=== PATIENT | male | born 1935 | race Caucasian/White ===

== ENCOUNTER 2017-12-12 07:32 | Emergency (ER) | payer OTHER ==
[~2017-12-12] VITALS: Ht 182.9 cm; Wt 97.5 kg
[2017-12-12 07:36] VITALS: BP_SYST 147
[2017-12-12 08:33] LABS: BASOPHILS % (AUTO) 0.4 % (0.0-2.0); EOSINOPHILS # (AUTO) 0.2 K/uL (0.0-0.4); EOSINOPHILS % (AUTO) 2.5 % (0.0-4.0); HEMATOCRIT 38.9 % (36-54); HEMOGLOBIN 12.6 g/dL (14.0-18.0); LYMPHOCYTES # (AUTO) 1.6 K/uL (1.0-5.5); LYMPHOCYTES % (AUTO) 25.7 % (20.5-51.5); MEAN CORPUSCULAR HEMOGLOBIN 31 pg (27-31); MEAN CORPUSCULAR HGB CONC 32 % (32-36); MEAN CORPUSCULAR VOLUME 96 fL (79.0-98.0); MONOCYTES # (AUTO) 0.6 K/uL (0.0-1.0); MONOCYTES % (AUTO) 10.5 % (1.7-9.3); NEUTROPHILS # (AUTO) 3.8 K/uL (1.8-7.7); NEUTROPHILS % (AUTO) 60.9 % (40.0-70.0); PLATELET COUNT (AUTO) 217 K/uL (130-430); RED BLOOD CELL COUNT(AUTO) 4.04 MIL/uL (4.2-6.2); RED CELL DISTRIBUTION WIDTH 13.2 % (9.0-15.0); WHITE BLOOD COUNT (AUTO) 6.2 K/uL (4.8-10.8)
[2017-12-12 08:39] LABS: ANION GAP 6 (5-15); CALCIUM 9.7 mg/dL (8.4-11.0); CHLORIDE 101 mmol/L (98-107); CREATININE 1.78 mg/dL (0.55-1.30); GLUCOSE 101 mg/dL (70-99); POTASSIUM 4.4 mmol/L (3.5-5.1); SODIUM SERUM 135 mmol/L (136-145); UREA NITROGEN, BLOOD 29 mg/dL (8-21)
[2017-12-12 08:40] LABS: BILIRUBIN,URINE NEGATIVE (NEGATIVE); BLOOD, URINE NEGATIVE (NEGATIVE); CLARITY/URINE CLEAR (CLEAR); COLOR,URINE YELLOW (YELLOW); GLUCOSE,URINE NEGATIVE (NEGATIVE); KETONES,URINE NEGATIVE (NEGATIVE); LEUKOCYTE ESTERASE ,URINE NEGATIVE (NEGATIVE); NITRITE, URINE NEGATIVE (NEGATIVE); PH,URINE 5.5 (5.0-8.0); PROTEIN URINE NEGATIVE (NEGATIVE)
[2017-12-12 08:45] LABS: PROTHROMBIN TIME 9.9 SECS (9.5-12.5)
[2017-12-12 08:52] LABS: BARBITURATE, URINE NEGATIVE (NEG <=200); BENZODIAZEPINE, URINE NEGATIVE (NEG <=150); CANNABINOID, URINE NEGATIVE (NEG <=50); COCAINE, URINE NEGATIVE (NEG <=150); METHAMPHETAMINES SCREEN,URINE NEGATIVE (NEG <=500); OPIATE, URINE NEGATIVE (NEG <=100); PHENCYCLIDINE SCREEN,URINE NEGATIVE (NEG <=25); UR TRICYCLIC ANTIDEPRESSANTS NEGATIVE (NEG <=300); URINE AMPHETAMINE NEGATIVE (NEG <=500); URINE METHADONE NEGATIVE (NEG <=200); URINE OXYCODONE SCREEN NEGATIVE (NEG <=100); URINE PROPOXYPHENE SCREEN NEGATIVE (NEG <=300)
[2017-12-12 08:59] LABS: ALANINE AMINOTRANSFERASE 16 U/L (12-78); ALBUMIN 3.7 g/dL (3.4-4.8); ASPARTATE AMINOTRANSFERASE 18 U/L (10-37); TOTAL BILIRUBIN 0.7 mg/dL (0.0-1.0)
[2017-12-12 09:05] LABS: FREE T4 (FREE THYROXINE) 0.8 ng/dL (0.6-1.6)
[2017-12-12 10:34] VITALS: BP_SYST 149
[2017-12-12] MEDS ORDERED: MECL12.584 PO (10:51)
[2017-12-12] MEDS ORDERED: LOPE2CAP PO (10:51)
[2017-12-12] MEDS ORDERED: ALLO300T2 PO (10:51)
[2017-12-12] MEDS ORDERED: GLIP-172 PO (10:51)
[2017-12-12] MEDS ORDERED: TUM500 PO (10:51)
[2017-12-12] MEDS ORDERED: DOCU-144 PO (10:51)
[2017-12-12] MEDS ORDERED: METO-290 PO (10:51)
[2017-12-12] MEDS ORDERED: SITA100T7 PO (10:51)
[2017-12-12] MEDS ORDERED: GUAI100S14 PO (10:51)
[2017-12-12] MEDS ORDERED: FAMO40TA7 PO (10:51)
[2017-12-12] MEDS ORDERED: VITD2000 PO (10:51)
[2017-12-12] MEDS ORDERED: ARTT OP (10:51)
[2017-12-12] MEDS ORDERED: CARB-61 PO (10:51)
[2017-12-12] MEDS ORDERED: ACET-1010 PO (10:51)
[2017-12-12] MEDS ORDERED: LIP40 PO (10:51)
[2017-12-12] MEDS ORDERED: ROPI0.252 PO (10:51)
[2017-12-12] MEDS ORDERED: MEMA1CAP3 PO (10:51)
== END 2017-12-12 10:34 | disposition home or self-care (01) ==
LOC: SED 07:32
DX: R53.1 Weakness (principal); R51 Headache
CPT/HCPCS: 36415; 70450; 71045; 74018; 80053; 80307; 81003; 83605; 83880; 84439; 84484; 85025; 85610; 87040; 93005; 99285; G0482

== ENCOUNTER 2020-01-05 16:56 | Inpatient (IN) | payer OTHER ==
[~2020-01-05] VITALS: Ht 182.9 cm; Wt 79.4 kg
[~2020-01-05 16:56] MED LIST: ACET-2634 PO; ALLO300T2 PO; ARTT OP; CARB-61 PO; DOCU-144 PO; FAMO40TA7 PO; GLIP10TA21 PO; GUAI100S14 PO; LIP40 PO; LOPE2CAP PO; MECL12.584 PO; MEMA1CAP3 PO; METO-290 PO; ROPI0.252 PO; SITA100T11 PO; TUM500 PO; VITD2000 PO
[2020-01-05] MEDS ORDERED: CHOL100034 PO (17:29)
[2020-01-05] MEDS ORDERED: MEMA10TA21 PO (17:29)
[2020-01-05] MEDS ORDERED: TOLT4CAP14 PO (17:29)
[2020-01-05] MEDS ORDERED: DONE10TA4 PO (17:29)
[2020-01-05] MEDS ORDERED: CAL-GEST PO (17:30)
[2020-01-05] MEDS ORDERED: LOPE2CAP PO (17:30)
[2020-01-05] MEDS ORDERED: MENT3.5O TP (17:30)
[2020-01-05] MEDS ORDERED: LACT10SO7 PO (17:30)
[2020-01-05 17:35] VITALS: BP_SYST 132
[2020-01-05] MEDS ORDERED: KETOROLAC TROMETHAMINE 30 MG VIAL IVP ONE (17:45)
[2020-01-05 18:51] LABS: BASOPHILS % (AUTO) 0.5 % (0.0-2.0); EOSINOPHILS # (AUTO) 0.1 K/uL (0.0-0.4); EOSINOPHILS % (AUTO) 1.6 % (0.0-4.0); HEMATOCRIT 40.8 % (36-54); HEMOGLOBIN 13.3 g/dL (14.0-18.0); LYMPHOCYTES # (AUTO) 1.5 K/uL (1.0-5.5); LYMPHOCYTES % (AUTO) 19.2 % (20.5-51.5); MEAN CORPUSCULAR HEMOGLOBIN 33 pg (27-31); MEAN CORPUSCULAR HGB CONC 33 % (32-36); MEAN CORPUSCULAR VOLUME 102 fL (79.0-98.0); MONOCYTES # (AUTO) 0.9 K/uL (0.0-1.0); MONOCYTES % (AUTO) 11.3 % (1.7-9.3); NEUTROPHILS # (AUTO) 5.4 K/uL (1.8-7.7); NEUTROPHILS % (AUTO) 67.4 % (40.0-70.0); PLATELET COUNT (AUTO) 192 K/uL (130-430); RED CELL DISTRIBUTION WIDTH 15.4 % (9.0-15.0); WHITE BLOOD COUNT (AUTO) 8.1 K/uL (4.8-10.8)
[2020-01-05 19:08] LABS: ANION GAP 9 (5-15); CALCIUM 9.2 mg/dL (8.4-11.0); CHLORIDE 102 mmol/L (98-107); CREATININE 1.39 mg/dL (0.55-1.30); GLUCOSE 125 mg/dL (70-99); POTASSIUM 4.8 mmol/L (3.5-5.1); SODIUM SERUM 138 mmol/L (136-145); UREA NITROGEN, BLOOD 24 mg/dL (8-21)
[2020-01-05 19:09] LABS: PROTHROMBIN TIME 10.2 SECS (9.5-12.5)
[2020-01-05 19:13] LABS: ALANINE AMINOTRANSFERASE 18 U/L (12-78); ALBUMIN 3.7 g/dL (3.4-4.8); ASPARTATE AMINOTRANSFERASE 27 U/L (10-37); TOTAL BILIRUBIN 0.5 mg/dL (0.0-1.0)
[2020-01-05] MEDS ORDERED: roPINIRole HCL 0.25 MG ( REQUIP )TABLET PO ONE (21:00)
[2020-01-05] MEDS ORDERED: CARBIDOPA/LEVODOPA CR 50/200 MG TAB PO ONE (21:00)
[2020-01-05] MEDS ORDERED: roPINIRole HCL 0.25 MG ( REQUIP )TABLET ONE (21:57)
[2020-01-05] MEDS ORDERED: CARBIDOPA/LEVODOPA CR 50/200 MG TAB ONE (21:57)
[2020-01-05 22:16] LABS: BILIRUBIN,URINE NEGATIVE (NEGATIVE); BLOOD, URINE NEGATIVE (NEGATIVE); CLARITY/URINE CLEAR (CLEAR); COLOR,URINE YELLOW (YELLOW); GLUCOSE,URINE NEGATIVE (NEGATIVE); KETONES,URINE NEGATIVE (NEGATIVE); LEUKOCYTE ESTERASE ,URINE NEGATIVE (NEGATIVE); NITRITE, URINE NEGATIVE (NEGATIVE); PH,URINE 5.5 (5.0-8.0); PROTEIN URINE NEGATIVE (NEGATIVE)
[2020-01-05] MEDS ORDERED: cefTRIAXone 1 GM IVPB PREMIX 50 ML IV ONE ×2 (22:45→22:59)
[2020-01-05] MEDS ORDERED: NS 1000 ML IV.SOLN IV ONE (22:45)
[2020-01-06] MEDS: NACL 0.9% 1,000 ML IV SCH ×3 (03:42→16:40)
[2020-01-06] MEDS ORDERED: POTASSIUM CHLORIDE 20 MEQ TAB.PRT.SR PO PRN (06:45)
[2020-01-06] MEDS ORDERED: MUPIROCIN 2% TOPICAL OINTMENT 22 GM NS PRN (06:45)
[2020-01-06] MEDS ORDERED: DOCUSATE SODIUM 100 MG CAPSULE PO PRN (06:45)
[2020-01-06] MEDS ORDERED: ONDANSETRON HCL 4 MG/2 ML VIAL IVP PRN (06:45)
[2020-01-06] MEDS ORDERED: LORazepam 2 MG/ML VIAL IVP PRN (06:45)
[2020-01-06] MEDS ORDERED: ZOLPIDEM TARTRATE 5 MG TABLET PO PRN (06:45)
[2020-01-06] MEDS ORDERED: ACETAMINOPHEN 325 MG TABLET PO PRN (06:45)
[2020-01-06] MEDS ORDERED: MORPHINE SULFATE 10 MG/ML VIAL IVP PRN ×2 (06:45)
[2020-01-06] MEDS ORDERED: MAGNESIUM SULFATE 50 ML IV PRN (06:45)
[2020-01-06 08:30] VITALS: BP_SYST 145
[2020-01-06] MEDS: ALLOPURINOL 300 MG TABLET (ZYLOPRIM) PO SCH (08:51)
[2020-01-06] MEDS: MEMANTINE HCL 5 MG TABLET PO SCH ×2 (08:51→21:23)
[2020-01-06] MEDS: DONEPEZIL HCL 5 MG TABLET (ARICEPT) PO SCH (08:52)
[2020-01-06] MEDS: ATORVASTATIN 20 MG TABLET PO SCH (08:52)
[2020-01-06] MEDS: HEPARIN SODIUM,PORCINE 5000 UNITS/ML VIAL SUBCUT SCH ×2 (08:54→21:22)
[2020-01-06] MEDS: TOLTERODINE TARTRATE 4 MG PO SCH (08:58)
[2020-01-06] MEDS ORDERED: CARBIDOPA/LEVODOPA 25/100 MG TABLET PO SCH (09:00)
[2020-01-06] MEDS: METOPROLOL TARTRATE 25 MG TABLET PO SCH (10:16)
[2020-01-06 12:38] VITALS: BP_SYST 119
[2020-01-06 16:25] VITALS: BP_SYST 159
[2020-01-06] MEDS: CARBIDOPA/LEVODOPA 25/100 MG TABLET PO SCH ×2 (16:45→21:22)
[2020-01-06 19:00] VITALS: BP_SYST 122
[2020-01-06 20:00] VITALS: BP_SYST 122
[2020-01-06] MEDS: roPINIRole HCL 0.25 MG ( REQUIP )TABLET PO SCH (21:23)
[2020-01-07 00:40] VITALS: BP_SYST 141
[2020-01-07] MEDS: NACL 0.9% 1,000 ML IV SCH (05:58)
[2020-01-07] MEDS ORDERED: CARB-61 PO (08:11)
[2020-01-07 08:14] VITALS: BP_SYST 144
[2020-01-07] MEDS ORDERED: MINERAL OIL 133 ML ENEMA RC ONE (08:15)
[2020-01-07] MEDS: DONEPEZIL HCL 5 MG TABLET (ARICEPT) PO SCH (08:58)
[2020-01-07] MEDS: CARBIDOPA/LEVODOPA 25/100 MG TABLET PO SCH ×4 (08:59→22:00)
[2020-01-07] MEDS: METOPROLOL TARTRATE 25 MG TABLET PO SCH (08:59)
[2020-01-07] MEDS: TOLTERODINE TARTRATE 4 MG PO SCH (08:59)
[2020-01-07] MEDS: ATORVASTATIN 20 MG TABLET PO SCH (08:59)
[2020-01-07] MEDS: MEMANTINE HCL 5 MG TABLET PO SCH ×2 (08:59→21:00)
[2020-01-07] MEDS: ALLOPURINOL 300 MG TABLET (ZYLOPRIM) PO SCH (08:59)
[2020-01-07] MEDS: HEPARIN SODIUM,PORCINE 5000 UNITS/ML VIAL SUBCUT SCH (09:02)
[2020-01-07 16:38] VITALS: BP_SYST 138
[2020-01-07] MEDS: roPINIRole HCL 0.25 MG ( REQUIP )TABLET PO SCH (22:00)
[2020-01-08] MEDS: HEPARIN SODIUM,PORCINE 5000 UNITS/ML VIAL SUBCUT SCH ×3 (00:05→21:56)
[2020-01-08 01:32] VITALS: BP_SYST 147
[2020-01-08 07:31] LABS: CHLORIDE 106 mmol/L (98-107); POTASSIUM 5.4 mmol/L (3.5-5.1); SODIUM SERUM 142 mmol/L (136-145)
[2020-01-08 07:32] LABS: ANION GAP 8 (5-15); BASOPHILS % (AUTO) 0.2 % (0.0-2.0); CREATININE 0.97 mg/dL (0.55-1.30); EOSINOPHILS # (AUTO) 0.3 K/uL (0.0-0.4); EOSINOPHILS % (AUTO) 2.5 % (0.0-4.0); GLUCOSE 95 mg/dL (70-99); HEMATOCRIT 39.7 % (36-54); HEMOGLOBIN 12.9 g/dL (14.0-18.0); LYMPHOCYTES % (AUTO) 19.8 % (20.5-51.5); MEAN CORPUSCULAR HEMOGLOBIN 33 pg (27-31); MEAN CORPUSCULAR HGB CONC 33 % (32-36); MEAN CORPUSCULAR VOLUME 102 fL (79.0-98.0); MONOCYTES # (AUTO) 1.1 K/uL (0.0-1.0); MONOCYTES % (AUTO) 10.9 % (1.7-9.3); NEUTROPHILS # (AUTO) 6.8 K/uL (1.8-7.7); NEUTROPHILS % (AUTO) 66.6 % (40.0-70.0); PLATELET COUNT (AUTO) 181 K/uL (130-430); RED BLOOD CELL COUNT(AUTO) 3.87 MIL/uL (4.2-6.2); RED CELL DISTRIBUTION WIDTH 15.1 % (9.0-15.0); UREA NITROGEN, BLOOD 13 mg/dL (8-21); WHITE BLOOD COUNT (AUTO) 10.2 K/uL (4.8-10.8)
[2020-01-08] MEDS: ATORVASTATIN 20 MG TABLET PO SCH (09:00)
[2020-01-08] MEDS: METOPROLOL TARTRATE 25 MG TABLET PO SCH (09:00)
[2020-01-08] MEDS: DONEPEZIL HCL 5 MG TABLET (ARICEPT) PO SCH (09:34)
[2020-01-08] MEDS: MEMANTINE HCL 5 MG TABLET PO SCH ×2 (09:35→21:54)
[2020-01-08] MEDS: ALLOPURINOL 300 MG TABLET (ZYLOPRIM) PO SCH (09:45)
[2020-01-08] MEDS: CARBIDOPA/LEVODOPA 25/100 MG TABLET PO SCH ×4 (09:45→21:54)
[2020-01-08] MEDS: TOLTERODINE TARTRATE 4 MG PO SCH (09:45)
[2020-01-08 12:20] VITALS: BP_SYST 160
[2020-01-08 17:02] VITALS: BP_SYST 106
[2020-01-08 19:00] VITALS: BP_SYST 110
[2020-01-08 20:00] VITALS: BP_SYST 110
[2020-01-08] MEDS: roPINIRole HCL 0.25 MG ( REQUIP )TABLET PO SCH (21:54)
[2020-01-08 23:17] VITALS: BP_SYST 152
[2020-01-09 06:16] LABS: BASOPHILS % (AUTO) 0.4 % (0.0-2.0); EOSINOPHILS # (AUTO) 0.3 K/uL (0.0-0.4); EOSINOPHILS % (AUTO) 3.4 % (0.0-4.0); HEMATOCRIT 38.4 % (36-54); HEMOGLOBIN 12.6 g/dL (14.0-18.0); LYMPHOCYTES # (AUTO) 2.3 K/uL (1.0-5.5); LYMPHOCYTES % (AUTO) 29.7 % (20.5-51.5); MEAN CORPUSCULAR HEMOGLOBIN 33 pg (27-31); MEAN CORPUSCULAR HGB CONC 33 % (32-36); MEAN CORPUSCULAR VOLUME 101 fL (79.0-98.0); MONOCYTES % (AUTO) 12.1 % (1.7-9.3); NEUTROPHILS # (AUTO) 4.3 K/uL (1.8-7.7); NEUTROPHILS % (AUTO) 54.4 % (40.0-70.0); PLATELET COUNT (AUTO) 178 K/uL (130-430); RED BLOOD CELL COUNT(AUTO) 3.79 MIL/uL (4.2-6.2); RED CELL DISTRIBUTION WIDTH 14.9 % (9.0-15.0); WHITE BLOOD COUNT (AUTO) 7.9 K/uL (4.8-10.8)
[2020-01-09 06:27] LABS: ANION GAP 8 (5-15); CALCIUM 8.8 mg/dL (8.4-11.0); CHLORIDE 102 mmol/L (98-107); CREATININE 1.21 mg/dL (0.55-1.30); GLUCOSE 100 mg/dL (70-99); POTASSIUM 4.9 mmol/L (3.5-5.1); SODIUM SERUM 137 mmol/L (136-145); UREA NITROGEN, BLOOD 20 mg/dL (8-21)
[2020-01-09 08:00] VITALS: BP_SYST 138
[2020-01-09] MEDS: DONEPEZIL HCL 5 MG TABLET (ARICEPT) PO SCH (08:30)
[2020-01-09] MEDS: MEMANTINE HCL 5 MG TABLET PO SCH (08:30)
[2020-01-09] MEDS: CARBIDOPA/LEVODOPA 25/100 MG TABLET PO SCH ×2 (08:31→12:39)
[2020-01-09] MEDS: METOPROLOL TARTRATE 25 MG TABLET PO SCH (08:34)
[2020-01-09] MEDS: ATORVASTATIN 20 MG TABLET PO SCH (08:35)
[2020-01-09] MEDS: ALLOPURINOL 300 MG TABLET (ZYLOPRIM) PO SCH (08:35)
[2020-01-09] MEDS: HEPARIN SODIUM,PORCINE 5000 UNITS/ML VIAL SUBCUT SCH (08:36)
[2020-01-09] MEDS: TOLTERODINE TARTRATE 4 MG PO SCH (09:00)
[2020-01-09 12:43] VITALS: BP_SYST 93
[2020-01-09] MEDS: NACL 0.9% 1,000 ML IV SCH (13:18)
[2020-01-09 13:51] VITALS: BP_SYST 104
== END 2020-01-09 15:50 | disposition hospice, home (50) | DRG 683 ==
LOC: SED 16:56 → SMU 23:19
PROVIDERS: ADMIT General Practice; ATTEND General Practice
DX: N17.0 Acute kidney failure with tubular necrosis (principal); E87.2 Acidosis; G20 Parkinson's disease; E78.5 Hyperlipidemia, unspecified; F02.80 Dementia in other diseases classified elsewhere, unspecified severity, without behavioral disturbance, psychotic disturbance, mood disturbance, and anxiety; G30.9 Alzheimer's disease, unspecified; R29.6 Repeated falls; M10.9 Gout, unspecified; E56.9 Vitamin deficiency, unspecified; K21.9 Gastro-esophageal reflux disease without esophagitis; I12.9 Hypertensive chronic kidney disease with stage 1 through stage 4 chronic kidney disease, or unspecified chronic kidney disease; E11.22 Type 2 diabetes mellitus with diabetic chronic kidney disease; N18.9 Chronic kidney disease, unspecified; E78.00 Pure hypercholesterolemia, unspecified; Z79.899 Other long term (current) drug therapy
CPT/HCPCS: 36415; 70450-TC; 71045; 72192-TC; 73030; 73700-TC; 80048; 80053; 81003; 83036; 83605; 83735-TC; 84484; 85025; 85610-TC; 85730-TC; 87040-TC; 87086; 93005; 96361; 96365; 97110-GP; 97116-GP; 97530-GP; 99285; J0696; J1644; J1885; J3475; J7030